=== PATIENT | female | born 1985 | race Hispanic/Latino ===

== ENCOUNTER 2017-03-30 17:49 | Emergency (ER) | payer OTHER ==
[~2017-03-30] VITALS: Ht 160 cm; Wt 104.5 kg
[~2017-03-30 17:49] MED LIST: AMOXICILLIN/PO500 MG PO; AZITHROMYCIN250 MG PO; BIRTH CONTROL PILLS; CIPRO500 MG OR; FERROUS SULFAT325 MG PO; LORTAB 1010 MG PO; MOTRIN400 MG OR; NAPROSYN500 MG PO; NO HOME MEDS; TOPAMAX50 MG PO; TRIMOX500 MG PO; ULTRAM50 M1 PO; ULTRAM50 MG OR; ZOFRAN ODT4 MG PO
[2017-03-30 19:16] LABS: HEMATOCRIT 36.2 % (37.0-47.0); HEMOGLOBIN 11.9 g/dl (12.0-16.0); IMMATURE GRANULOCYTES 0.2 % (0.0-1.0); MEAN CELL VOLUME 88.7 fL CALC (80.0-100.0); MEAN CORPUSCULAR HGB 29.2 pG CALC (26.0-32.0); MEAN CORPUSCULAR HGB CONC 32.9 g/L CALC (32.0-36.0); NEUT# 5.62 thou/uL (2.00-7.15); RED BLOOD COUNT 4.08 mill/uL (4.20-5.60); RED CELL DISTRI WIDTH 13.3 % (11.5-15.5)
[2017-03-30 19:28] LABS: ALBUMIN 4.2 g/dL (3.2-5.0); ALKALINE PHOSPHATASE 59 u/l (38-126); ANION GAP 15 (6-22 (CALC)); BILIRUBIN, TOTAL 0.6 mg/dL (0.0-1.4); BUN 13 mg/dL (7-17); BUN/CREATININE RATIO 19 (12-20 (CALC)); CALCIUM 9.5 mg/dL (8.4-10.2); CARBON DIOXIDE 27 mmol/l (22-30); CHLORIDE 103 mmol/l (95-108); CREATININE 0.7 mg/dL (0.5-1.0); GFR > 60 ML/MIN (>=60 (CALC)); GFR FOR AFR.AMER. > 60 ML/MIN (>=60 (CALC)); GLUCOSE 101 mg/dL (65-105); POTASSIUM 4.3 mmol/l (3.5-5.1); SGOT/AST 22 u/l (14-36); SGPT/ALT 33 u/l (9-52); SODIUM 141 mmol/l (137-146); TOTAL PROTEIN 7.7 g/dL (6.3-8.2)
[2017-03-30] MEDS ORDERED: AMOXICILLIN500 MG PO (20:36)
[2017-03-30] MEDS ORDERED: BENADRYL 50MG C50 MG PO (20:36)
[2017-03-30 20:45] VITALS: BP 119/74
== END 2017-03-30 20:45 | disposition home or self-care (01) | DRG 153 ==
LOC: ED 17:49
PROVIDERS: Emergency Medicine
DX: J02.9 Acute pharyngitis, unspecified (principal); L50.9 Urticaria, unspecified; R50.9 Fever, unspecified

== ENCOUNTER 2017-07-29 23:32 | Emergency (ER) | payer OTHER ==
[~2017-07-29] VITALS: Ht 160 cm; Wt 104.0 kg
[~2017-07-29 23:32] MED LIST changes: +AMOXICILLIN500 MG PO; +BENADRYL 50MG C50 MG PO
[2017-07-30 00:33] LABS: HEMATOCRIT 36.5 % (37.0-47.0); HEMOGLOBIN 11.9 g/dl (12.0-16.0); IMMATURE GRANULOCYTES 0.2 % (0.0-1.0); MEAN CELL VOLUME 85.7 fL CALC (80.0-100.0); MEAN CORPUSCULAR HGB 27.9 pG CALC (26.0-32.0); MEAN CORPUSCULAR HGB CONC 32.6 g/L CALC (32.0-36.0); NEUT# 6.42 thou/uL (2.00-7.15); RED BLOOD COUNT 4.26 mill/uL (4.20-5.60); RED CELL DISTRI WIDTH 14.2 % (11.5-15.5)
[2017-07-30 00:34] LABS: URINE BILIRUBIN - DIPSTICK NEGATIVE (NEGATIVE); URINE BLOOD DIPSTICK LARGE (NEGATIVE); URINE CLARITY CLOUDY; URINE COLOR YELLOW; URINE GLUCOSE - DIPSTICK NEGATIVE (NEGATIVE); URINE KETONE NEGATIVE (NEGATIVE); URINE LEUK ESTERASE NEGATIVE (NEGATIVE); URINE NITRITE - DIPSTICK NEGATIVE (Negative); URINE PROTEIN - DIPSTICK NEGATIVE (NEG-TRACE); URINE SPECIFIC GRAVITY 1.015; URINE UROBILINOGEN - DIPSTICK 0.2 E.U./dL (0.2)
[2017-07-30 00:40] LABS: URINE BACTERIA FEW hpf; URINE SQUAMOUS EPITHELIAL CELL MODERATE EPI/hpf (0-FEW); URINE WBC 0-2 WBC/hpf (0-5)
[2017-07-30 00:44] LABS: ALBUMIN 4.5 g/dL (3.2-5.0); ALKALINE PHOSPHATASE 68 u/l (38-126); AMYLASE 57 u/l (30-110); ANION GAP 17 (6-22 (CALC)); BILIRUBIN, TOTAL 0.7 mg/dL (0.0-1.4); BUN 20 mg/dL (7-17); BUN/CREATININE RATIO 20 (12-20 (CALC)); CALCIUM 9.8 mg/dL (8.4-10.2); CARBON DIOXIDE 27 mmol/l (22-30); CHLORIDE 103 mmol/l (95-108); GFR > 60 ML/MIN (>=60 (CALC)); GFR FOR AFR.AMER. > 60 ML/MIN (>=60 (CALC)); GLUCOSE 82 mg/dL (65-105); LIPASE 167 u/l (23-300); POTASSIUM 3.8 mmol/l (3.5-5.1); SGOT/AST 23 u/l (14-36); SGPT/ALT 37 u/l (9-52); SODIUM 143 mmol/l (137-146); TOTAL PROTEIN 7.8 g/dL (6.3-8.2)
[2017-07-30] MEDS ORDERED: PREVACID30 M2 PO (01:59)
[2017-07-30] MEDS ORDERED: ULTRAM50 M1 PO (01:59)
[2017-07-30 03:30] VITALS: BP 95/54
== END 2017-07-30 03:30 | disposition home or self-care (01) | DRG 392 ==
LOC: ED 23:32
PROVIDERS: Emergency Medicine
DX: K29.70 Gastritis, unspecified, without bleeding (principal); R11.0 Nausea; R10.13 Epigastric pain; R10.11 Right upper quadrant pain
CPT/HCPCS: Q9967; S0164

== ENCOUNTER 2018-02-20 20:16 | Emergency (ER) | payer OTHER ==
[~2018-02-20] VITALS: Ht 160 cm; Wt 104.0 kg
[~2018-02-20 20:16] MED LIST changes: +PREVACID30 M2 PO
[2018-02-20] MEDS ORDERED: ULTRAM50 M1 PO (21:59)
[2018-02-20 22:25] VITALS: BP 115/74
== END 2018-02-20 22:27 | disposition home or self-care (01) | DRG 605 ==
LOC: ED 20:16
DX: S80.02XA Contusion of left knee, initial encounter (principal); W01.0XXA Fall on same level from slipping, tripping and stumbling without subsequent striking against object, initial encounter; Y92.59 Other trade areas as the place of occurrence of the external cause

== ENCOUNTER 2020-01-23 | Emergency (ER) | payer OTHER ==
[2020-01-23 19:28] LABS: IMMATURE GRANULOCYTES 0.2 % (0.0-5.0); MEAN CORPUSCULAR HGB CONC 29.4 g/L CALC (32.0-36.0); NEUT# 5.04 thou/uL (2.00-7.15); RED BLOOD COUNT 3.77 mill/uL (4.20-5.60)
[2020-01-23 19:30] LABS: HEMATOCRIT 28.2 % (37.0-47.0); HEMOGLOBIN 8.3 g/dl (12.0-16.0); MEAN CELL VOLUME 74.8 fL CALC (80.0-100.0)
[2020-01-23 19:41] LABS: ALBUMIN 4.1 g/dL (3.2-5.0); ALKALINE PHOSPHATASE 63 u/l (38-126); AMYLASE 63 u/l (30-110); ANION GAP 12 (6-22 (CALC)); BILIRUBIN, TOTAL 0.5 mg/dL (0.0-1.4); BUN 13 mg/dL (7-17); BUN/CREATININE RATIO 24 (12-20 (CALC)); CARBON DIOXIDE 23 mmol/l (22-30); CHLORIDE 107 mmol/l (95-108); CREATININE 0.6 mg/dL (0.5-1.0); GFR > 60 ML/MIN (>=60 (CALC)); GFR FOR AFR.AMER. > 60 ML/MIN (>=60 (CALC)); LIPASE 83 u/l (23-300); POTASSIUM 4.2 mmol/l (3.5-5.1); SGOT/AST 29 u/l (14-36); SODIUM 138 mmol/l (137-146); TOTAL PROTEIN 7.8 g/dL (6.3-8.2)
[2020-01-23 19:49] LABS: MYOGLOBIN 14 ng/mL (0 - 62)
[2020-01-23] MEDS ORDERED: NATAZIA PO (19:54)
[2020-01-23 20:56] LABS: URINE BILIRUBIN - DIPSTICK NEGATIVE (NEGATIVE); URINE BLOOD DIPSTICK MODERATE (NEGATIVE); URINE COLOR YELLOW; URINE GLUCOSE - DIPSTICK NEGATIVE (NEGATIVE); URINE KETONE NEGATIVE (NEGATIVE); URINE LEUK ESTERASE TRACE (NEGATIVE); URINE NITRITE - DIPSTICK NEGATIVE (Negative); URINE PROTEIN - DIPSTICK NEGATIVE (NEG-TRACE); URINE UROBILINOGEN - DIPSTICK 0.2 E.U./dL (0.2)
[2020-01-23 21:05] LABS: URINE SQUAMOUS EPITHELIAL CELL FEW EPI/hpf (0-FEW)
[2020-01-23] MEDS ORDERED: PEPCID20 MG PO (21:19)
[2020-01-23] MEDS ORDERED: FERROUS SULF325 M3 PO (21:19)
== END 2020-01-23 21:32 | disposition home or self-care (01) | DRG 392 ==
PROVIDERS: Family Medicine
DX: K29.70 Gastritis, unspecified, without bleeding (principal); D50.9 Iron deficiency anemia, unspecified; N92.1 Excessive and frequent menstruation with irregular cycle

== ENCOUNTER 2021-11-26 14:34 | Emergency (ER) | payer SELFPAY ==
[~2021-11-26] VITALS: Ht 160 cm; Wt 105.0 kg
[~2021-11-26 14:34] MED LIST changes: +FERROUS SULF325 M3 PO; +NATAZIA PO; +PEPCID20 MG PO
[2021-11-26 15:33] LABS: HEMATOCRIT 33.3 % (37.0-47.0); HEMOGLOBIN 11.1 g/dl (12.0-16.0); IMMATURE GRANULOCYTES 0.6 % (0.0-5.0); MEAN CELL VOLUME 88.3 fL CALC (80.0-100.0); MEAN CORPUSCULAR HGB 29.4 pG CALC (26.0-32.0); MEAN CORPUSCULAR HGB CONC 33.3 g/dL CAL (32.0-36.0); NEUT# 4.89 thou/uL (2.00-7.15); RED BLOOD COUNT 3.77 mill/uL (4.20-5.60); RED CELL DISTRI WIDTH 13.5 % (11.5-15.5)
[2021-11-26 15:43] LABS: ALBUMIN 3.9 g/dL (3.2-5.0); ALKALINE PHOSPHATASE 72 u/l (38-126); BILIRUBIN, TOTAL 0.5 mg/dL (0.0-1.4); BUN 16 mg/dL (7-17); BUN/CREATININE RATIO 20 (12-20 (CALC)); CHLORIDE 105 mmol/l (95-108); CREATININE 0.8 mg/dL (0.5-1.0); GFR > 60 ML/MIN (>=60 (CALC)); GFR FOR AFR.AMER. > 60 ML/MIN (>=60 (CALC)); POTASSIUM 3.5 mmol/l (3.5-5.1); SGOT/AST 23 u/l (14-36); SODIUM 138 mmol/l (137-146); TOTAL PROTEIN 7.4 g/dL (6.3-8.2)
[2021-11-26 15:44] LABS: ANION GAP 9 (6-22 (CALC)); CARBON DIOXIDE 28 mmol/l (22-30)
[2021-11-27 01:15] VITALS: BP 129/67
== END 2021-11-26 18:10 | disposition home or self-care (01) | DRG 149 ==
LOC: ED 14:34
PROVIDERS: Emergency Medicine
DX: R42 Dizziness and giddiness (principal); Z20.822 Contact with and (suspected) exposure to COVID-19

== ENCOUNTER 2021-12-10 10:01 | Emergency (ER) | payer SELFPAY ==
[~2021-12-10] VITALS: Ht 160 cm; Wt 100.0 kg
[2021-12-10 11:39] VITALS: BP 108/71
== END 2021-12-10 11:40 | disposition home or self-care (01) | DRG 179 ==
LOC: ED 10:01
DX: U07.1 COVID-19 (principal)

== ENCOUNTER 2022-09-10 23:27 | Emergency (ER) | payer SELFPAY ==
[~2022-09-10] VITALS: Ht 160 cm; Wt 97.0 kg
[2022-09-10 23:37] VITALS: BP 126/80
[2022-09-10 23:45] VITALS: BP 130/75
[2022-09-11 00:10] VITALS: BP 129/83
[2022-09-11 00:20] LABS: HEMOGLOBIN 10.2 g/dl (12.0-16.0); MEAN CELL VOLUME 77.1 fL CALC (80.0-100.0); MEAN CORPUSCULAR HGB 23.1 pG CALC (26.0-32.0); NEUT# 4.41 thou/uL (2.00-7.15); RED BLOOD COUNT 4.41 mill/uL (4.20-5.60)
[2022-09-11 00:31] VITALS: BP 113/70
[2022-09-11 00:41] LABS: URINE BILIRUBIN - DIPSTICK NEGATIVE (NEGATIVE); URINE BLOOD DIPSTICK LARGE (NEGATIVE); URINE GLUCOSE - DIPSTICK NEGATIVE (NEGATIVE); URINE KETONE NEGATIVE (NEGATIVE); URINE LEUK ESTERASE NEGATIVE (NEGATIVE); URINE PROTEIN - DIPSTICK 100 mg/dL (NEG-TRACE); URINE SPECIFIC GRAVITY >=1.030; URINE UROBILINOGEN - DIPSTICK 0.2 E.U./dL (0.2)
[2022-09-11 00:43] LABS: ALBUMIN 4.6 g/dL (3.2-5.0); ALKALINE PHOSPHATASE 87 u/l (38-126); ANION GAP 15 (6-22 (CALC)); BILIRUBIN, TOTAL 0.4 mg/dL (0.0-1.4); BUN 12 mg/dL (7-17); BUN/CREATININE RATIO 16 (12-20 (CALC)); CARBON DIOXIDE 24 mmol/l (22-30); CHLORIDE 101 mmol/l (95-108); CREATININE 0.7 mg/dL (0.5-1.0); GFR FOR AFR.AMER. > 60 ML/MIN (>=60 (CALC)); GFR OTHER RACES > 60 ML/MIN (>=60 (CALC)); SGOT/AST 33 u/l (14-36); SODIUM 136 mmol/l (137-146); TOTAL PROTEIN 8.2 g/dL (6.3-8.2)
[2022-09-11 00:44] LABS: URINE COLOR RED
[2022-09-11 00:45] VITALS: BP 120/68
[2022-09-11 00:48] LABS: URINE EPITHELIAL CELLS FEW EPI/hpf (0-FEW); URINE RBC >100 RBC/hpf (0-5)
[2022-09-11 00:49] LABS: URINE BACTERIA MODERATE hpf
[2022-09-11 01:00] VITALS: BP 110/69
[2022-09-11 01:04] LABS: URINE NITRITE - DIPSTICK NEGATIVE (Negative)
[2022-09-11 01:23] VITALS: BP 110/69
== END 2022-09-11 01:40 | disposition home or self-care (01) | DRG 812 ==
LOC: ED 23:27
PROVIDERS: Family Medicine
DX: D50.9 Iron deficiency anemia, unspecified (principal); R42 Dizziness and giddiness; N94.6 Dysmenorrhea, unspecified

== ENCOUNTER 2022-12-15 20:03 | Emergency (ER) | payer SELFPAY ==
[~2022-12-15] VITALS: Ht 160 cm; Wt 95.0 kg
[2022-12-15 20:43] VITALS: BP 115/71
[2022-12-15 20:45] VITALS: BP 112/76
[2022-12-15] MEDS ORDERED: OMNI-PAC300 MG PO (21:12)
[2022-12-15] MEDS ORDERED: HYDROCO/APAP1 TA9 PO (21:12)
[2022-12-15] MEDS ORDERED: EC-NAPROXEN500 MG PO (21:12)
[2022-12-15 21:15] VITALS: BP 103/66
[2022-12-15 21:30] VITALS: BP 108/82
[2022-12-15 21:31] VITALS: BP 108/82
[2022-12-15] MEDS ORDERED: IRON (FERROUS S50 MG (21:45)
== END 2022-12-15 22:01 | disposition home or self-care (01) | DRG 603 ==
LOC: ED 20:03
DX: L03.031 Cellulitis of right toe (principal)

== ENCOUNTER 2024-06-07 12:14 | Emergency (ER) | payer SELFPAY ==
[~2024-06-07] VITALS: Ht 160 cm; Wt 100.0 kg
[~2024-06-07 12:14] MED LIST changes: +EC-NAPROXEN500 MG PO; +HYDROCO/APAP1 TA9 PO; +IRON (FERROUS S50 MG; +OMNI-PAC300 MG PO
[2024-06-07] MEDS ORDERED: MOTRIN800 MG PO (14:38)
[2024-06-07 14:40] VITALS: BP 129/85
== END 2024-06-07 14:49 | disposition home or self-care (01) | DRG 601 ==
LOC: ED 12:14
DX: N64.4 Mastodynia (principal)